=== PATIENT | male | born 1985 | race African-American/Black ===

== ENCOUNTER 2020-09-19 03:27 | Emergency (ER) | payer OTHER ==
--- NOTE | 2020-09-19 07:32 | RADIOLOGY REPORT (SQ) ---
CHEST X-RAY 2 view on 09/19/2020 at 6:52 AM CLINICAL INDICATION: Shortness of breath, chest pain COMPARISON: None FINDINGS: The lungs are clear. Cardiac, hilar and mediastinal contours are within normal limits. Pulmonary vascularity is within normal limits. No bony abnormality is noted. IMPRESSION: No active disease.
[2020-09-19 08:46] VITALS: BP 142/91
--- NOTE | 2020-09-19 09:06 | ER Document Report ---
ED General - General Chief Complaint: Shortness Of Breath Stated Complaint: SHORTNESS OF BREATH Time Seen by Provider: 09/19/20 08:56 Notes: Patient is a 35-year-old male who comes emergency department for chief complaint of a tightness in his chest, sensation of shortness of breath, and extreme restlessness. He states he has not slept for over 2 days. Patient states this started with drinking alcohol and partying for New Year's, he states that he pushed through to stay awake, sober up, and go home, however he has been restless since then and unable to sleep. He states symptoms started yesterday and have been persistent. He denies injury, fever/chills, vomiting, cough, or other sick symptoms. He denies any daily medications. He drinks alcohol occasionally, vapes, denies recreational drugs. He denies any daily medications, past medical history reportedly of PTSD and anxiety. - Related Data Allergies/Adverse Reactions: No Known Allergies Allergy (Unverified 09/19/20 09:44) Home Medications: meds are coming from [place] Past Medical History - General Information source: Patient - Social History Smoking Status: Current Every Day Smoker Smoking Education Provided: Yes - <3 min Frequency of alcohol use: Social Drug Abuse: None Lives with: Family Family History: Reviewed & Not Pertinent - Medical History Medical History: Negative Surgical Hx: Negative - Immunizations Immunizations up to date: Yes Hx Diphtheria, Pertussis, Tetanus Vaccination: Yes Review of Systems - Review of Systems Constitutional: See HPI EENT: No symptoms reported Cardiovascular: See HPI Respiratory: No symptoms reported Gastrointestinal: No symptoms reported Genitourinary: No symptoms reported Male Genitourinary: No symptoms reported Musculoskeletal: No symptoms reported Skin: No symptoms reported Hematologic/Lymphatic: No symptoms reported Neurological/Psychological: No symptoms reported Physical Exam - Vital signs Vitals: Temp Pulse Resp BP Pulse Ox 98.6 F 83 18 150/82 H 97 09/19/20 03:49 09/19/20 03:49 09/19/20 03:49 09/19/20 03:49 09/19/20 03:49 - Notes Notes: GENERAL: Patient appears restless and very tired but otherwise does not appear to be in distress HEAD: Normocephalic, atraumatic. EYES: Pupils equal, round, and reactive to light. Extraocular movements intact. ENT: Oral mucosa moist, tongue midline. Oropharynx unremarkable. Airway patent. NECK: Full range of motion. Supple. Trachea midline. No lymphadenopathy. LUNGS: Clear to auscultation bilaterally, no wheezes, rales, or rhonchi. No respiratory distress. Non-tender chest wall. HEART: Regular rate and rhythm. No murmur ABDOMEN: Soft, non-tender. Non-distended. EXTREMITIES: Moves all 4 extremities spontaneously. No edema, normal radial and dorsalis pedis pulses bilaterally. No cyanosis. BACK: no cervical, thoracic, lumbar midline tenderness. No saddle anesthesia, normal distal neurovascular exam. Moves all extremities in full range of motion. NEUROLOGICAL: Alert and oriented x3. Normal speech. Cranial nerves II through XII grossly intact. Strength 5/5 in all extremities. PSYCH: Restless mood but otherwise unremarkable SKIN: Warm, dry, normal turgor. No rashes or lesions noted. Course - Re-evaluation Re-evalutation: Patient is fidgety and anxious on initial evaluation, appears very tired. He has not slept in over 2 days after he apparently drank alcohol to the point that he had a hangover. EKG and chest x-ray unremarkable. CBC shows concentrated hemoglobin, CK is slightly elevated, work-up otherwise unremarkable. Troponin negative. Patient given Ativan and lactated Ringer's. On reevaluation patient very appreciative, has no current symptoms, states he feels great and he wants to go home and sleep. Very low suspicion of acute emergent intrathoracic etiology or infection. I discussed with patient and significant other bedside, discussed follow-up and return precautions. They state appreciation and agreement. Stable and well-appearing at time of discharge. - Vital Signs Vital signs: Temp Pulse Resp BP Pulse Ox 98.2 F 93 20 142/91 H 99 09/19/20 08:42 09/19/20 08:42 09/19/20 08:42 09/19/20 08:42 09/19/20 08:42 - Laboratory Results Result Diagrams: 09/19/20 09:30 09/19/20 10:45 Laboratory Results Interpreted: 09/19/20 09/19/20 09:30 10:45 RBC 6.07 H Hgb 17.5 H Sodium 134.5 L Total Bilirubin 1.4 H Creatine Kinase 464 H Critical Laboratory Results Reviewed: No Critical Results - Radiology Results Critical Radiology Results Reviewed: No Critical Results - EKG Interpretation by Me Additional EKG results interpreted by me: EKG shows sinus rhythm at a rate of 94, QTc 466, normal axis, no T wave inversions or ST segment changes in consecutive leads. Machine reads as normal. Discharge - Discharge Clinical Impression: Chest discomfort, Dehydration, Anxiety Insomnia Qualifiers: Insomnia type: unspecified Qualified Code(s): G47.00 - Insomnia, unspecified Condition: Stable Disposition: HOME, SELF-CARE Additional Instructions: You have been treated for your dehydration and insomnia along with the symptoms, stress, and anxiety that this causes. Your work-up does not show any concerning findings at this time. Rest, drink any fluids, follow-up with primary care. Return if you worsen including difficulty breathing, passing out, severe worsening pain, fever, or any other concerning symptoms.
[2020-09-19] MEDS ORDERED: LORAZEPAM INJ 2 MG/1 ML VIAL IV ONE (09:14)
[2020-09-19] MEDS ORDERED: RINGERS SOLUTION,LACTATED 1,000 ML IV ONE (09:14)
[2020-09-19 10:08] LABS: ABSOLUTE BASOPHILS # (AUTO) 0.1 10^3/uL (0.0-0.2); ABSOLUTE EOSINOPHILS # (AUTO) 0.1 10^3/uL (0.0-0.6); ABSOLUTE LYMPHOCYTES (AUTO) 1.8 10^3/uL (0.5-4.7); ABSOLUTE NEUT (AUTO) 6.6 10^3/uL (1.7-8.2); BASOPHILS % (AUTO) 0.5 % (0-2); EOSINOPHILS % (AUTO) 0.9 % (0-6); HEMATOCRIT 50.3 % (37.9-51.0); HEMOGLOBIN 17.5 g/dL (13.5-17.0); LYMPHOCYTES % (AUTO) 18.9 % (13-45); MEAN CORPUSCULAR HEMOGLOBIN 28.8 pg (27.0-33.4); MEAN CORPUSCULAR HGB CONC 34.8 g/dL (32.0-36.0); MEAN CORPUSCULAR VOLUME 83 fl (80-97); MONOCYTES % (AUTO) 10.9 % (3-13); PLATELET COUNT 326 10^3/uL (150-450); RED BLOOD COUNT 6.07 10^6/uL (4.35-5.55); RED CELL DISTRIBUTION WIDTH 13.9 % (11.5-14.0); SEGMENTED NEUTROPHILS % (AUTO) 68.8 % (42-78); TOTAL CELLS COUNTED % (AUTO) 100 %; WHITE BLOOD COUNT 9.6 10^3/uL (4.0-10.5)
[2020-09-19 11:10] LABS: ALBUMIN 4.2 g/dL (3.5-5.0); ALKALINE PHOSPHATASE 83 U/L (38-126); ANION GAP 7 (5-19); ASPARTATE AMINO TRANSFERASE 36 U/L (17-59); BILIRUBIN,DIRECT 0.2 mg/dL (0.0-0.4); BILIRUBIN,TOTAL 1.4 mg/dL (0.2-1.3); BLOOD UREA NITROGEN 9 mg/dL (7-20); CALCIUM 9.6 mg/dL (8.4-10.2); CARBON DIOXIDE 25 mmol/L (22-30); CHLORIDE 103 mmol/L (98-107); CREATINE KINASE 464 U/L (55-170); GLUCOSE 101 mg/dL (75-110); POTASSIUM 4.1 mmol/L (3.6-5.0); TOTAL PROTEIN 7.4 g/dL (6.3-8.2)
--- NOTE | 2020-09-19 14:49 | EKG REPORT ---
SEVERITY:- OTHERWISE NORMAL ECG - SINUS TACHYCARDIA RIGHT AXIS DEVIATION : Confirmed by: Valerio Giles 19-Sep-2020 14:49:06
== END 2020-09-19 11:30 | disposition home or self-care (01) ==
LOC: ER 03:27
DX: G47.00 Insomnia, unspecified (principal); R07.9 Chest pain, unspecified; E86.0 Dehydration; F41.9 Anxiety disorder, unspecified; R06.02 Shortness of breath; F17.200 Nicotine dependence, unspecified, uncomplicated
CPT/HCPCS: 93005; 99285; 96361; 96374; 36415; 80307; 82550; 85025; 80053; 84484; 71046; 93010; J2060; J7120